=== PATIENT | female | born 1945 | race Caucasian/White ===

== ENCOUNTER → 2016-04-23 | Outpatient (CLI) | payer MEDICARE, BC ==
--- NOTE | 2016-04-23 17:51 | RADRPT ---
PROCEDURE: Right knee radiographs. CLINICAL INDICATION: Right knee pain. TECHNIQUE: Four views. Weight bearing. Frontal, lateral, oblique, and patellar view. COMPARISON: No prior studies are available for comparison. FINDINGS: There is no fracture or dislocation. The soft tissues are normal. There are degenerative changes with osteophytes arising from all 3 joint compartment margins. There is no joint space narrowing or deformity. There is no lytic or blastic lesion. There is no radiopaque foreign body. IMPRESSION: 1. Mild degenerative changes of the right knee. 2. No acute abnormality. RPTAT: QQ .Mando Krueger MD, MD Date Time Electronically viewed and signed by .Mando Krueger MD, on 04/23/2016 17:51 .R/
== END | disposition home or self-care (01) ==
LOC: HKI 13:58
PROVIDERS: ATTEND Orthopaedic Surgery
DX: M25.561 Pain in right knee (principal)
CPT/HCPCS: 73564; G0463

== ENCOUNTER → 2016-05-28 | Outpatient (CLI) | payer MEDICARE, BC | END | disposition home or self-care (01) | LOC: HKI 13:47 | PROVIDERS: ATTEND Orthopaedic Surgery | DX: M17.11 Unilateral primary osteoarthritis, right knee (principal); M25.561 Pain in right knee; S83.231A Complex tear of medial meniscus, current injury, right knee, initial encounter; S83.261A Peripheral tear of lateral meniscus, current injury, right knee, initial encounter; X58.XXXA Exposure to other specified factors, initial encounter | CPT/HCPCS: 20610; G0463; J1030 ==